=== PATIENT | male | born 1950 | race Caucasian/White ===

== ENCOUNTER 2021-11-29 11:19 | Emergency (ER) | payer MEDICARE, OTHER ==
[~2021-11-29 11:19] MED LIST: ASPIRIN EC81 MG PO; FLONASE ALLERG9.9 ML; GLUCOPHAGE1000 MG PO; HUMULIN N100 UNIT/1 SC; HUMULIN R100 UNIT/1 SC; NORCO 5-325 TA1 EACH PO; PRILOSEC20 MG PO; PRINIVIL10 MG PO; VICKS VAPORUB O50 GM; ZYRTEC10 M3 PO
[2021-11-29 11:59] LABS: BASOPHIL 0.7 % (0-2); EOSINOPHIL 0.5 % (0-7); HCT 48.1 % (42.0-52.0); LYMPHOCYTE 21.3 % (15-48); MCH 30.7 pg (25.0-31.0); MCHC 33.3 g/dL (32.0-36.0); MCV 92.1 fL (78.0-100.0); MONOCYTE 13.9 % (0-12); NEUTROPHIL 63.1 % (41-80); NRBC 0; PLT 288 K/uL (150-400); RBC 5.22 M/uL (4.70-6.00); RDW 13.1 % (11.5-14.0); WBC 6.1 K/uL (4.0-10.5)
[2021-11-29 12:24] LABS: BUN/CREAT RATIO (CALC) 15.6 RATIO; CREATININE 1.09 mg/dL (0.67-1.17)
== END 2021-11-29 17:20 | disposition home or self-care (01) ==
LOC: FER 11:19
PROVIDERS: Emergency Medicine
DX: U07.1 COVID-19 (principal); J12.82 Pneumonia due to coronavirus disease 2019; E11.9 Type 2 diabetes mellitus without complications; I10 Essential (primary) hypertension; K21.9 Gastro-esophageal reflux disease without esophagitis; Z28.310 Unvaccinated for COVID-19; Z87.891 Personal history of nicotine dependence; Z79.84 Long term (current) use of oral hypoglycemic drugs; Z79.82 Long term (current) use of aspirin; Z79.899 Other long term (current) drug therapy
CPT/HCPCS: 36415; 71045; 71275; 80048; 83880; 84484; 85025; 93005; Q9967